=== PATIENT | female | born 1940 | race Two or more races ===

== ENCOUNTER 2023-02-11 08:59 | Inpatient (IN) | payer OTHER ==
[~2023-02-11] VITALS: Ht 152.4 cm; Wt 59.0 kg
[2023-02-12] MEDS ORDERED: LIPITOR20 MG PO (10:39)
[2023-02-12] MEDS ORDERED: ENALAPRIL MALEA10 MG PO (10:39)
[2023-02-12] MEDS ORDERED: LEVOTHYROXINE25 MCG PO (10:40)
[2023-02-16] MEDS ORDERED: SULINDAC200 MG (09:14)
[2023-02-20] MEDS ORDERED: INTESTINEX680 M1 PO (09:34)
[2023-02-20] MEDS ORDERED: LEVSIN/SL0.125 MG SL (09:34)
[2023-02-20] MEDS ORDERED: PERCOCET 5-3251 EACH PO (09:34)
[2023-02-20] MEDS ORDERED: PEPCID AC20 MG PO (09:34)
== END 2023-02-20 14:35 | disposition home or self-care (01) | DRG 330 ==
LOC: O/R 02-16 05:50 → SURG 02-16 05:50 → SURH 02-17 18:08
PROVIDERS: ADMIT Surgery; ATTEND Surgery
PROC: 07BB4ZZ Excision of Mesenteric Lymphatic, Percutaneous Endoscopic Approach (ICD-10-PCS; 2023-02-16)
PROC: 3E0F7SF Introduction of Other Gas into Respiratory Tract, Via Natural or Artificial Opening (ICD-10-PCS; 2023-02-16)
PROC: 0DTF4ZZ Resection of Right Large Intestine, Percutaneous Endoscopic Approach (ICD-10-PCS; principal; 2023-02-16 20:30)
DX: C18.0 Malignant neoplasm of cecum (principal); K56.7 Ileus, unspecified; R59.0 Localized enlarged lymph nodes; E03.9 Hypothyroidism, unspecified; I10 Essential (primary) hypertension; E78.00 Pure hypercholesterolemia, unspecified